=== PATIENT | male | born 1960 | race Caucasian/White ===

== ENCOUNTER 2018-08-23 18:26 | Emergency (ER) | payer OTHER ==
[~2018-08-23] VITALS: Ht 188 cm; Wt 114.1 kg
[2018-08-23 18:28] VITALS: BP 156/87
[2018-08-23] MEDS ORDERED: GABA300C10 PO (18:34)
[2018-08-23] MEDS ORDERED: ATORVASTATIN (18:34)
== END 2018-08-23 19:11 | disposition home or self-care (01) ==
LOC: ED 18:55
DX: Z00.00 Encounter for general adult medical examination without abnormal findings (principal); I10 Essential (primary) hypertension
CPT/HCPCS: 99281